=== PATIENT | female | born 1960 | race African-American/Black ===

== ENCOUNTER 2018-04-14 13:45 | Inpatient (IN) | payer OTHER ==
[~2018-04-14] VITALS: Ht 167.6 cm; Wt 68.2 kg
[2018-04-28] MEDS ORDERED: GLYCOPYRROLATE 0.2 MG/ML VIAL IM ONE (03:53)
[2018-04-28] MEDS ORDERED: PROPOFOL 1% 20 ML VIAL IVP ONE (03:53)
[2018-04-28] MEDS ORDERED: SUCCINYLCHOLINE CHLORIDE 20 MG/ML 10 ML VIAL IVP ONE (03:53)
[2018-04-28] MEDS ORDERED: ONDANSETRON HCL 4 MG/2 ML VIAL IVP ONE (03:53)
[2018-04-28] MEDS ORDERED: NEOSTIGMINE METHYLSULFATE 1 MG/ML 10 ML VIAL IVP ONE (03:53)
[2018-04-28] MEDS ORDERED: ROCURONIUM BROMIDE 10 MG/ML 5 ML VIAL IVP ONE (03:53)
[2018-04-28] MEDS ORDERED: DEXAMETHASONE SOD PHOS 4 MG/ML VIAL IVP ONE (03:53)
[2018-04-28] MEDS ORDERED: ESMOLOL HCL 10 MG/ML 10 ML VIAL IVP ONE (03:53)
[2018-04-28] MEDS ORDERED: LIDOCAINE/PF 2% 5 ML VIAL IM ONE (03:53)
[2018-04-28] MEDS ORDERED: KETAMINE HCL 50 MG/ML 10 ML VIAL IVP ONE (04:07)
[2018-04-28] MEDS ORDERED: MIDAZOLAM HCL 2 MG/2 ML VIAL IVP ONE (04:07)
[2018-04-28] MEDS ORDERED: RINGERS SOLUTION,LACTATED 1,000 ML IV ONE ×2 (05:45→08:44)
[2018-04-28] MEDS ORDERED: CLINDAMYCIN 900 MG/D5% WATER 50 ML IV ONE (06:00)
[2018-04-28 06:38] LABS: GLUCOMETER DEV NAME(LOC) SDS 5; GLUCOSE,POINT OF CARE 151 MG/DL (70-110)
[2018-04-28] MEDS ORDERED: ATOR40TA28 PO (06:39)
[2018-04-28] MEDS ORDERED: INSLAN SQ (06:39)
[2018-04-28] MEDS ORDERED: FERR-89 PO (06:39)
[2018-04-28] MEDS ORDERED: LISI-662 PO (06:43)
[2018-04-28] MEDS ORDERED: LEVO100 PO (06:43)
[2018-04-28] MEDS ORDERED: CHL25 PO (06:43)
[2018-04-28] MEDS ORDERED: HYD50 PO (06:43)
[2018-04-28] MEDS ORDERED: VITAD1000 PO (06:43)
[2018-04-28] MEDS ORDERED: METF-960 PO (06:43)
[2018-04-28] MEDS ORDERED: ACETAMINOPHEN 1000 MG/ISO-OSM 100 ML IV ONE ×2 (06:46→13:30)
[2018-04-28] MEDS ORDERED: CloNIDine HCL 0.2 MG TABLET PO ONE (07:00)
[2018-04-28] MEDS ORDERED: CeFAZolin 1 GM/DEXTROSE 50 ML IV ONE (07:00)
[2018-04-28] MEDS ORDERED: DiphenhydrAMINE HCL 50 MG/ML VIAL IVP PRN (07:45)
[2018-04-28] MEDS ORDERED: BENZOCAINE/MENTHOL LOZENGE PO PRN (07:45)
[2018-04-28] MEDS ORDERED: MAG HYDROX/AL HYDROX/SIMETH 30 ML SUSP UDCUP PO PRN (07:45)
[2018-04-28] MEDS ORDERED: ONDANSETRON HCL 4 MG/2 ML VIAL IVP PRN (07:45)
[2018-04-28] MEDS ORDERED: ZOLPIDEM TARTRATE 10 MG TABLET PO PRN (07:45)
[2018-04-28] MEDS ORDERED: HYDROmorphone 2 MG/ML SYRINGE IVP PRN (08:30)
[2018-04-28] MEDS ORDERED: CYCLOBENZAPRINE HCL 10 MG TABLET PO PRN (08:30)
[2018-04-28] MEDS ORDERED: GUM MASTIC/STORAX/MSAL/ALCOHOL LIQUID 0.67 ML VIAL TP ONE (09:32)
[2018-04-28] MEDS ORDERED: DiphenhydrAMINE HCL 50 MG/ML VIAL ONE (10:09)
[2018-04-28] MEDS ORDERED: DiphenhydrAMINE HCL 50 MG/ML VIAL IVP STA (10:11)
[2018-04-28] MEDS ORDERED: HYDROmorphone 2 MG/ML SYRINGE ONE (10:22)
[2018-04-28 10:52] VITALS: BP 137/78
[2018-04-28] MEDS ORDERED: SODIUM CHLORIDE 0.9% 0 ML IV ONE (12:58)
[2018-04-28] MEDS: DOCUSATE SODIUM 100 MG CAPSULE PO SCH ×2 (13:03→20:35)
[2018-04-28 16:14] VITALS: BP 150/84
[2018-04-28] MEDS: OxyCODONE HCL/ACETAMINOPHEN 10-325 MG TABLET PO PRN ×2 (18:56→23:26)
[2018-04-28 19:53] VITALS: BP 147/88
[2018-04-29 00:25] VITALS: BP 159/95
[2018-04-29 04:52] VITALS: BP 158/93
[2018-04-29] MEDS: OxyCODONE HCL/ACETAMINOPHEN 10-325 MG TABLET PO PRN (06:17)
[2018-04-29 07:37] VITALS: BP 158/86
[2018-04-29] MEDS: DOCUSATE SODIUM 100 MG CAPSULE PO SCH (08:11)
[2018-04-29] MEDS ORDERED: DiphenhydrAMINE HCL 25 MG CAPSULE PO PRN (08:15)
== END 2018-04-29 13:00 | disposition home or self-care (01) | DRG 473 ==
LOC: 4E 04-28 05:23
PROVIDERS: ADMIT Orthopaedic Surgery Orthopaedic Surgery of the Spine; ATTEND Orthopaedic Surgery Orthopaedic Surgery of the Spine
PROC: 0RG20A0 Fusion of 2 or more Cervical Vertebral Joints with Interbody Fusion Device, Anterior Approach, Anterior Column, Open Approach (ICD-10-PCS; 2018-04-28)
PROC: 4A11X4G Monitoring of Peripheral Nervous Electrical Activity, Intraoperative, External Approach (ICD-10-PCS; 2018-04-28)
PROC: 07DS3ZZ Extraction of Vertebral Bone Marrow, Percutaneous Approach (ICD-10-PCS; 2018-04-28)
PROC: 0PB30ZZ Excision of Cervical Vertebra, Open Approach (ICD-10-PCS; principal; 2018-04-28 07:30)
DX: M48.02 Spinal stenosis, cervical region (principal)
CPT/HCPCS: 87081; 97161; 97165; 97530; 97535; C1713; G0238; J0131; J0330; J1100; J1170; J1200; J2250; J2405; J2704; J3490; J7040; J7120

== ENCOUNTER 2018-08-25 06:50 | Inpatient (IN) | payer OTHER ==
[~2018-08-25] VITALS: Ht 165.1 cm; Wt 72.0 kg
[~2018-08-25 06:50] MED LIST: ATOR40TA28 PO; CHL25 PO; FERR-89 PO; HYD50 PO; INSLAN SQ; LEVO100 PO; LISI-662 PO; METF-960 PO; VITAD1000 PO
[2018-08-25] MEDS ORDERED: CeFAZolin 2 GM/DEXTROSE 50 ML IV ONE (07:00)
[2018-08-25] MEDS ORDERED: CLINDAMYCIN 600 MG/D5% WATER 50 ML IV ONE (07:00)
[2018-08-25] MEDS ORDERED: RINGERS SOLUTION,LACTATED 1,000 ML IV ONE ×3 (07:00→11:00)
[2018-08-25 08:07] LABS: BASOPHILS % (AUTO) 0.5 % (0.0-2.0); EOSINOPHILS % (AUTO) 2.9 % (1.0-6.0); HEMATOCRIT 29.7 % (36-46); HEMOGLOBIN 9.6 g/dL (12.0-16.0); LYMPHOCYTES # (AUTO) 2.7 K/uL (1.0-4.8); LYMPHOCYTES % (AUTO) 23.3 % (22.0-44.0); MEAN CORPUSCULAR HEMOGLOBIN 24.7 pg (26.0-34.0); MEAN CORPUSCULAR HGB CONC 32.3 G/dL (31.0-37.0); MEAN CORPUSCULAR VOLUME 76 fL (80-100); MONOCYTES # (AUTO) 0.6 K/uL (0.1-1.0); MONOCYTES % (AUTO) 5.2 % (2.0-9.0); NEUTROPHILS # (AUTO) 7.9 K/uL (1.8-7.7); NEUTROPHILS % (AUTO) 68.1 % (40.0-70.0); PLATELET COUNT (AUTO) 456 K/uL (150-450); RED BLOOD CELL COUNT(AUTO) 3.89 MIL/uL (4.00-5.20); RED CELL DISTRIBUTION WIDTH 17.9 % (11.5-14.5)
[2018-08-25 08:24] LABS: CALCIUM, TOTAL 9.5 mg/dL (8.8-10.5); CREATININE 1.42 mg/dL (0.60-1.30); POTASSIUM 4.2 mmol/L (3.5-5.1)
[2018-08-25 08:30] LABS: ALBUMIN 3.7 g/dL (3.4-5.0); BILIRUBIN,TOTAL 0.3 mg/dL (0.1-1.0); TOTAL PROTEIN, SERUM 7.9 g/dL (6.4-8.2)
[2018-08-25] MEDS ORDERED: KETAMINE HCL 50 MG/ML 10 ML VIAL ONE (09:36)
[2018-08-25] MEDS ORDERED: CloNIDine HCL 0.2 MG TABLET PO ONE (09:45)
[2018-08-25] MEDS ORDERED: ACETAMINOPHEN 500 MG TABLET PO ONE (09:45)
[2018-08-25] MEDS ORDERED: BUPIVACAINE HCL 0.25% 50 ML VIAL ONE (10:26)
[2018-08-25] MEDS ORDERED: BUPIVACAINE LIPOSOME/PF 1.3%-13.3MG/ML SUSPENSION 20 ML VIAL INJ ONE (10:45)
[2018-08-25] MEDS ORDERED: MEPERIDINE-PF 25 MG/ML VIAL IVP PRN (11:00)
[2018-08-25] MEDS ORDERED: FentaNYL CITRATE-PF 100 MCG/2 ML VIAL IVP PRN (11:00)
[2018-08-25] MEDS ORDERED: HYDROmorphone 2 MG/ML SYRINGE IVP PRN ×2 (11:00)
[2018-08-25] MEDS ORDERED: VANCOMYCIN HCL 1 GM/VIAL ONE (11:12)
[2018-08-25] MEDS ORDERED: ACETAMINOPHEN 1000 MG/ISO-OSM 100 ML IV PRN (11:15)
[2018-08-25] MEDS ORDERED: SUGAMMADEX SODIUM 200 MG/2 ML VIAL IVP ONE (11:37)
[2018-08-25] MEDS ORDERED: DiphenhydrAMINE HCL 50 MG/ML VIAL ONE (12:45)
[2018-08-25] MEDS ORDERED: DiphenhydrAMINE HCL 50 MG/ML VIAL IVP ONE (13:00)
[2018-08-25] MEDS: OxyCODONE HCL/ACETAMINOPHEN 10-325 MG TABLET PO PRN ×2 (13:32→20:04)
[2018-08-25 13:41] VITALS: BP 126/75
[2018-08-25] MEDS ORDERED: SODIUM CHLORIDE 0.9% 250 ML IV ONE (14:01)
[2018-08-25] MEDS: CLINDAMYCIN 600 MG/D5% WATER 50 ML IV SCH ×2 (14:19→20:04)
[2018-08-25 16:06] VITALS: BP 133/72
[2018-08-25] MEDS: ACETAMINOPHEN 500 MG TABLET PO SCH (17:00)
[2018-08-25] MEDS ORDERED: DEXTROSE 50%-WATER 25 GM/50 ML SYRINGE IVP PRN ×2 (18:15→22:45)
[2018-08-25] MEDS: INSULIN LISPRO 100 UNITS/ML SQ PRN ×2 (18:40→21:12)
[2018-08-25 18:53] LABS: GLUCOMETER DEV NAME(LOC) 4E.; GLUCOSE,POINT OF CARE 267 MG/DL (70-110)
[2018-08-25] MEDS: CYCLOBENZAPRINE HCL 10 MG TABLET PO PRN (20:04)
[2018-08-25 20:31] VITALS: BP 140/73
[2018-08-25] MEDS: INSULIN GLARGINE,HUM.REC.ANLOG 100 UNITS/ML SQ SCH (21:12)
[2018-08-25] MEDS ORDERED: ALBUTEROL SULFATE 2.5 MG/0.5 ML NEB SOLUTION NEB PRN (22:45)
[2018-08-25] MEDS ORDERED: INSULIN LISPRO 100 UNITS/ML SQ PRN (22:45)
[2018-08-25] MEDS ORDERED: IPRATROPIUM BROMIDE 0.5 MG/2.5 ML NEB SOLUTION NEB PRN (22:45)
[2018-08-25] MEDS ORDERED: BISACODYL 10 MG RECTAL RECTAL SUPPOSITORY PR PRN (22:45)
[2018-08-25] MEDS ORDERED: MAGNESIUM HYDROXIDE SUSPENSION 30 ML UDCUP PO PRN (22:45)
[2018-08-25] MEDS ORDERED: MORPHINE SULFATE 2 MG/ML SYRINGE IVP PRN (22:45)
[2018-08-25] MEDS ORDERED: ONDANSETRON HCL 4 MG/2 ML VIAL IVP PRN (22:45)
[2018-08-25] MEDS: HydrOXYzine HCL 50 MG TABLET PO SCH (23:15)
[2018-08-25] MEDS: ZOLPIDEM TARTRATE 5 MG TABLET PO PRN (23:15)
[2018-08-26] VITALS (7 sets, daily range): BP systolic 115–144; BP diastolic 57–77
[2018-08-26] MEDS: HEPARIN SODIUM,PORCINE 5,000 UNITS/ML VIAL SQ SCH ×4 (00:11→23:51)
[2018-08-26] MEDS: INSULIN LISPRO 100 UNITS/ML SQ PRN ×2 (05:27→12:00)
[2018-08-26] MEDS: LEVOTHYROXINE SODIUM 88 MCG TABLET PO SCH (05:40)
[2018-08-26] MEDS: CYCLOBENZAPRINE HCL 10 MG TABLET PO PRN ×2 (05:40→07:53)
[2018-08-26] MEDS ORDERED: PROPOFOL 1% 20 ML VIAL IVP ONE (05:49)
[2018-08-26] MEDS: ACETAMINOPHEN 500 MG TABLET PO SCH ×3 (05:49→12:12)
[2018-08-26] MEDS ORDERED: LIDOCAINE/PF 2% 5 ML VIAL IM ONE (05:49)
[2018-08-26] MEDS ORDERED: MIDAZOLAM HCL 2 MG/2 ML VIAL IVP ONE (05:49)
[2018-08-26] MEDS ORDERED: EPHEDrine SULFATE 50 MG/ML VIAL IM ONE (05:49)
[2018-08-26] MEDS ORDERED: ESMOLOL HCL 10 MG/ML 10 ML VIAL IVP ONE (05:49)
[2018-08-26] MEDS ORDERED: DEXAMETHASONE SOD PHOS 4 MG/ML VIAL IVP ONE (05:49)
[2018-08-26] MEDS ORDERED: ONDANSETRON HCL 4 MG/2 ML VIAL IVP ONE (05:49)
[2018-08-26] MEDS ORDERED: ROCURONIUM BROMIDE 10 MG/ML 5 ML VIAL IVP ONE (05:49)
[2018-08-26 05:58] LABS: GLUCOMETER DEV NAME(LOC) 4E.; GLUCOSE,POINT OF CARE 361 MG/DL (70-110)
[2018-08-26 05:59] LABS: GLUCOMETER DEV NAME(LOC) 4E.; GLUCOSE,POINT OF CARE 251 MG/DL (70-110)
[2018-08-26] MEDS: DOCUSATE SODIUM 100 MG CAPSULE PO SCH ×2 (07:53→20:44)
[2018-08-26] MEDS: FERROUS SULFATE 325 MG EC TABLET PO SCH ×2 (07:53→16:24)
[2018-08-26] MEDS: PANTOPRAZOLE SODIUM 40 MG DR TABLET PO SCH (07:53)
[2018-08-26] MEDS: MetFORMIN HCL 500 MG TABLET PO SCH ×2 (07:53→16:23)
[2018-08-26] MEDS: LISINOPRIL 20 MG TABLET PO SCH (07:53)
[2018-08-26] MEDS: ATORVASTATIN CALCIUM 40 MG TABLET PO SCH (07:53)
[2018-08-26] MEDS: CHOLECALCIFEROL (VIT D3) 1,000 UNITS TABLET PO SCH (07:54)
[2018-08-26] MEDS: CHLORTHALIDONE 25 MG TABLET PO SCH (07:54)
[2018-08-26] MEDS ORDERED: ACETAMINOPHEN 325 MG TABLET PO PRN (12:00)
[2018-08-26 12:15] LABS: GLUCOMETER DEV NAME(LOC) 4E.; GLUCOSE,POINT OF CARE 183 MG/DL (70-110)
[2018-08-26 16:38] LABS: GLUCOMETER DEV NAME(LOC) 4E.; GLUCOSE,POINT OF CARE 108 MG/DL (70-110)
[2018-08-26] MEDS: ZOLPIDEM TARTRATE 5 MG TABLET PO PRN (20:43)
[2018-08-26] MEDS: HydrOXYzine HCL 50 MG TABLET PO SCH (20:44)
[2018-08-26] MEDS: INSULIN GLARGINE,HUM.REC.ANLOG 100 UNITS/ML SQ SCH ×2 (20:45→21:00)
[2018-08-26 20:50] LABS: GLUCOMETER DEV NAME(LOC) 4E.; GLUCOSE,POINT OF CARE 131 MG/DL (70-110)
[2018-08-27] MEDS: HYDROCODONE/ACETAMINOPHEN 5-325 MG TABLET PO PRN ×2 (05:00→21:01)
[2018-08-27 05:19] VITALS: BP 145/81
[2018-08-27] MEDS: LEVOTHYROXINE SODIUM 88 MCG TABLET PO SCH (06:39)
[2018-08-27 08:09] VITALS: BP 125/72
[2018-08-27] MEDS: CHLORTHALIDONE 25 MG TABLET PO SCH (08:46)
[2018-08-27] MEDS: HEPARIN SODIUM,PORCINE 5,000 UNITS/ML VIAL SQ SCH ×2 (08:46→16:33)
[2018-08-27] MEDS: MetFORMIN HCL 500 MG TABLET PO SCH (08:46)
[2018-08-27] MEDS: CYCLOBENZAPRINE HCL 10 MG TABLET PO PRN (08:46)
[2018-08-27] MEDS: PANTOPRAZOLE SODIUM 40 MG DR TABLET PO SCH (08:47)
[2018-08-27] MEDS: CHOLECALCIFEROL (VIT D3) 1,000 UNITS TABLET PO SCH (08:47)
[2018-08-27] MEDS: LISINOPRIL 20 MG TABLET PO SCH (08:47)
[2018-08-27] MEDS: DOCUSATE SODIUM 100 MG CAPSULE PO SCH ×2 (08:47→21:00)
[2018-08-27] MEDS: FERROUS SULFATE 325 MG EC TABLET PO SCH ×2 (08:47→16:34)
[2018-08-27] MEDS: ATORVASTATIN CALCIUM 40 MG TABLET PO SCH (08:48)
[2018-08-27 10:29] LABS: GLUCOMETER DEV NAME(LOC) 4E.; GLUCOSE,POINT OF CARE 115 MG/DL (70-110)
[2018-08-27 12:02] VITALS: BP 120/65
[2018-08-27] MEDS ORDERED: SODIUM CHLORIDE 0.9% 1,000 ML IV ONE (12:45)
[2018-08-27 15:48] LABS: GLUCOMETER DEV NAME(LOC) 4E.; GLUCOSE,POINT OF CARE 129 MG/DL (70-110)
[2018-08-27 16:08] VITALS: BP 122/77
[2018-08-27] MEDS: INSULIN LISPRO 100 UNITS/ML SQ PRN (18:02)
[2018-08-27 18:09] LABS: GLUCOMETER DEV NAME(LOC) 4E.; GLUCOSE,POINT OF CARE 114 MG/DL (70-110)
[2018-08-27 19:35] VITALS: BP 122/62
[2018-08-27] MEDS: HydrOXYzine HCL 50 MG TABLET PO SCH (20:54)
[2018-08-27] MEDS: INSULIN GLARGINE,HUM.REC.ANLOG 100 UNITS/ML SQ SCH ×2 (21:00→22:01)
[2018-08-27 23:45] VITALS: BP 125/66
[2018-08-28 02:29] LABS: GLUCOMETER DEV NAME(LOC) 4E.; GLUCOSE,POINT OF CARE 123 MG/DL (70-110)
[2018-08-28 04:55] VITALS: BP 125/71
[2018-08-28 06:02] LABS: BASOPHILS % (AUTO) 0.3 % (0.0-2.0); EOSINOPHILS % (AUTO) 2.6 % (1.0-6.0); HEMOGLOBIN 9.5 g/dL (12.0-16.0); LYMPHOCYTES # (AUTO) 5.2 K/uL (1.0-4.8); MEAN CORPUSCULAR HEMOGLOBIN 24.3 pg (26.0-34.0); MEAN CORPUSCULAR HGB CONC 31.7 G/dL (31.0-37.0); MEAN CORPUSCULAR VOLUME 77 fL (80-100); MONOCYTES % (AUTO) 7.6 % (2.0-9.0); NEUTROPHILS # (AUTO) 6.7 K/uL (1.8-7.7); NEUTROPHILS % (AUTO) 50.5 % (40.0-70.0); PLATELET COUNT (AUTO) 473 K/uL (150-450); RED BLOOD CELL COUNT(AUTO) 3.91 MIL/uL (4.00-5.20); RED CELL DISTRIBUTION WIDTH 18.4 % (11.5-14.5)
[2018-08-28 06:15] LABS: ANION GAP 11 mmol/L (8-16); CARBON DIOXIDE 26 mmol/L (22-29); CHLORIDE 103 mmol/L (98-107); CREATININE 1.04 mg/dL (0.60-1.30); GLOMERULAR FILTR. RATE CALC > 60 mL/min (>60); GLUCOSE,RANDOM 80 mg/dL (70-110); POTASSIUM 4.1 mmol/L (3.5-5.1); SODIUM SERUM 140 mmol/L (136-145); UREA NITROGEN, BLOOD 23 mg/dL (7-18)
[2018-08-28] MEDS: LEVOTHYROXINE SODIUM 88 MCG TABLET PO SCH (06:19)
[2018-08-28 08:31] VITALS: BP 133/68
[2018-08-28] MEDS: DOCUSATE SODIUM 100 MG CAPSULE PO SCH (09:09)
[2018-08-28] MEDS: CHOLECALCIFEROL (VIT D3) 1,000 UNITS TABLET PO SCH (09:09)
[2018-08-28] MEDS: PANTOPRAZOLE SODIUM 40 MG DR TABLET PO SCH (09:09)
[2018-08-28] MEDS: FERROUS SULFATE 325 MG EC TABLET PO SCH (09:09)
[2018-08-28] MEDS: ATORVASTATIN CALCIUM 40 MG TABLET PO SCH (09:09)
[2018-08-28] MEDS: HEPARIN SODIUM,PORCINE 5,000 UNITS/ML VIAL SQ SCH ×2 (09:09)
[2018-08-28] MEDS: CHLORTHALIDONE 25 MG TABLET PO SCH (09:09)
[2018-08-28 11:37] VITALS: BP 130/74
[2018-08-28 17:04] LABS: GLUCOMETER DEV NAME(LOC) 4E.; GLUCOSE,POINT OF CARE 87 MG/DL (70-110)
[2018-08-28 17:04] LABS: GLUCOMETER DEV NAME(LOC) 4E.; GLUCOSE,POINT OF CARE 120 MG/DL (70-110)
== END 2018-08-28 13:00 | disposition home or self-care (01) | DRG 460 ==
LOC: 4E 06:50
PROVIDERS: ADMIT Orthopaedic Surgery Orthopaedic Surgery of the Spine; ATTEND Orthopaedic Surgery Orthopaedic Surgery of the Spine
PROC: 0SB40ZZ Excision of Lumbosacral Disc, Open Approach (ICD-10-PCS; 2018-08-25)
PROC: 0SB20ZZ Excision of Lumbar Vertebral Disc, Open Approach (ICD-10-PCS; 2018-08-25)
PROC: 0SG30A0 Fusion of Lumbosacral Joint with Interbody Fusion Device, Anterior Approach, Anterior Column, Open Approach (ICD-10-PCS; principal; 2018-08-25 09:30)
DX: M48.00 Spinal stenosis, site unspecified (principal); N17.9 Acute kidney failure, unspecified; E11.9 Type 2 diabetes mellitus without complications; I10 Essential (primary) hypertension; E78.5 Hyperlipidemia, unspecified; E03.9 Hypothyroidism, unspecified; D64.9 Anemia, unspecified
CPT/HCPCS: 87081; 88300; 93005; 97116; 97163; 97166; 97530; 97535; C9290; G0238; J1100; J1200; J1644; J1815; J2250; J2405; J2704; J3370; J3490; J7030; J7050; J7120